=== PATIENT | female | born 1995 | race African-American/Black ===

== ENCOUNTER 2020-12-15 10:48 | Emergency (ER) | payer SELFPAY ==
[2020-12-15 11:02] VITALS: BP 121/64; PULSE 72; TEMP 98.5; BMI 24.3
[2020-12-15 13:22] LABS: EPITHELIAL CELLS MODERATE /hpf
== END 2020-12-15 13:49 | disposition home or self-care (01) ==
LOC: FER 10:48
DX: N39.0 Urinary tract infection, site not specified (principal)
CPT/HCPCS: 36415; 81003; 81015; 84703; 87086; 87186; 87491; 87591; 99283-25

== ENCOUNTER 2020-12-18 17:19 | Emergency (ER) | payer SELFPAY | END 2020-12-18 17:54 | disposition home or self-care (01) | LOC: JVIRT 17:19 | DX: Z20.822 Contact with and (suspected) exposure to COVID-19 (principal) | CPT/HCPCS: C9803; G2251-GT; U0003 ==